=== PATIENT | female | born 2000 | race African-American/Black ===

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

== ENCOUNTER 2023-07-27 14:03 | Emergency (ER) | payer MEDICAID ==
[~2023-07-27] VITALS: Ht 162.6 cm; Wt 55.5 kg
[2023-07-27 14:32] VITALS: TEMP 98.3
[2023-07-27 15:10] LABS: APPEARANCE,URINE HAZY (CLEAR); BILIRUBIN,URINE NEGATIVE (NEGATIVE); COLOR,URINE LIGHT YELLOW (YELLOW); GLUCOSE, URINE (UA) NEGATIVE (NEGATIVE); HCG,QUAL URINE NEGATIVE (NEGATIVE); KETONES,URINE NEGATIVE (NEGATIVE); LEUKOCYTE ESTERASE ,URINE TRACE (NEGATIVE); NITRATE,URINE NEGATIVE (NEGATIVE); OCCULT BLOOD,URINE LARGE (NEGATIVE); PROTEIN,URINE NEGATIVE (NEGATIVE); SPECIFIC GRAVITIY, URINE 1.026 (1.003-1.030); UROBILINOGEN,URINE <=1.0 mg/dL (<=1.0)
[2023-07-27 15:35] LABS: BACTERIA,URINE Moderate /HPF (None Seen); SQUAMOUS EPITHELIAL CELL,UR Few /LPF (None Seen)
[2023-07-27] MEDS: CefTRIAXone SODIUM 1 GM/VIAL IM ONE (17:19)
[2023-07-27] MEDS: DOXYCYCLINE HYCLATE 100 MG TABLET PO ONE (17:19)
[2023-07-27] MEDS: LIDOCAINE/PF 1% 2 ML VIAL IM ONE (17:19)
[2023-07-27] MEDS ORDERED: DOXY-354 PO (17:40)
[2023-07-27 17:46] VITALS: BP 115/68; PULSE 78; RESP 16
[2023-07-27] MEDS ORDERED: METR500 PO (17:51)
== END 2023-07-27 17:48 | disposition home or self-care (01) ==
LOC: EMS 14:03
DX: A64 Unspecified sexually transmitted disease (principal); N76.0 Acute vaginitis
CPT/HCPCS: 99283; 81001; 84703; 87210; 87086; 87186; 87491; 87591; 96372; J0696; J3490

== ENCOUNTER 2023-12-10 02:02 | Emergency (ER) | payer SELFPAY ==
[~2023-12-10] VITALS: Ht 162.6 cm; Wt 54.5 kg
[~2023-12-10 02:02] MED LIST: DOXY-354 PO; METR500 PO
[2023-12-10 02:06] VITALS: BP 96/60; PULSE 68; RESP 20; TEMP 97.8
[2023-12-10] MEDS ORDERED: MICO45CR44 VG (03:56)
[2023-12-10] MEDS ORDERED: METR500 PO (03:56)
[2023-12-10] MEDS: AZITHROMYCIN 500 MG TABLET PO ONE (04:12)
[2023-12-10] MEDS: CefTRIAXone SODIUM 1 GM/VIAL IM ONE (04:12)
[2023-12-10] MEDS: LIDOCAINE/PF 1% 2 ML VIAL IM ONE (04:12)
== END 2023-12-10 04:50 | disposition home or self-care (01) ==
LOC: EMS 02:02
DX: N89.8 Other specified noninflammatory disorders of vagina (principal)
CPT/HCPCS: 99283; 84703; 96372; J0456; J0696; J3490